=== PATIENT | male | born 1965 | race Caucasian/White ===

== ENCOUNTER → 2016-10-18 | Outpatient (CLI) | payer OTHER | LOC: FLAB 10:32 | PROVIDERS: ATTEND Family Medicine Sports Medicine | DX: M25.512 Pain in left shoulder (principal); M25.552 Pain in left hip; M25.551 Pain in right hip ==

== ENCOUNTER → 2017-04-23 | Outpatient (CLI) | payer OTHER | LOC: FIMAGING 12:43 | PROVIDERS: ATTEND Orthopaedic Surgery | DX: M75.91 Shoulder lesion, unspecified, right shoulder (principal); S43.431A Superior glenoid labrum lesion of right shoulder, initial encounter; S43.432A Superior glenoid labrum lesion of left shoulder, initial encounter; M25.811 Other specified joint disorders, right shoulder; M25.812 Other specified joint disorders, left shoulder ==